=== PATIENT | male | born 1970 | race African-American/Black ===

== ENCOUNTER 2017-07-23 08:47 | Emergency (ER) | payer MEDICAID ==
[~2017-07-23] VITALS: Ht 170.2 cm; Wt 77.1 kg
[2017-07-23 10:14] VITALS: BP 131/74
== END 2017-07-23 10:14 | disposition home or self-care (01) ==
LOC: ED 08:47
DX: F20.9 Schizophrenia, unspecified (principal); Z86.59 Personal history of other mental and behavioral disorders